=== PATIENT | male | born 1960 ===

== ENCOUNTER 2021-03-09 07:28 | Emergency (ER) | payer OTHER ==
[~2021-03-09] VITALS: Ht 162.6 cm; Wt 63.5 kg
== END 2021-03-09 09:53 | disposition home or self-care (01) ==
LOC: ER 07:28
DX: S20.219A Contusion of unspecified front wall of thorax, initial encounter (principal); T14.8XXA Other injury of unspecified body region, initial encounter; Y99.0 Civilian activity done for income or pay; X58.XXXA Exposure to other specified factors, initial encounter
CPT/HCPCS: 71101; 99283-25